=== PATIENT | male | born 1980 | race Caucasian/White ===

== ENCOUNTER → 2021-04-12 | Day surgery (SDC) | payer OTHER ==
[~2021-04-12] VITALS: Ht 188 cm; Wt 97.5 kg
[~2021-04-12] MED LIST: ONDANSETRON ODT4 MG PO; PERCOCET 5-3251 EACH PO; PROTONIX 40MG T40 MG PO
== END | disposition home or self-care (01) ==
LOC: FAS 03-22 11:15
DX: K40.90 Unilateral inguinal hernia, without obstruction or gangrene, not specified as recurrent (principal); D17.79 Benign lipomatous neoplasm of other sites; R35.1 Nocturia; R35.0 Frequency of micturition; Z72.89 Other problems related to lifestyle; Z72.0 Tobacco use
CPT/HCPCS: C1781; J0690; J1100; J1885; J2250; J2405; J2704; J2710; J3010; J7120